=== PATIENT | male | born 1950 | race Caucasian/White ===

== ENCOUNTER 2025-05-29 20:35 | Emergency (ER) | payer BC, MEDICARE ==
[2025-05-29 20:44] VITALS: TEMP 97.8
[2025-05-29 20:57] LABS: MEAN PLATELET VOLUME 5.9 FL (7.4-10.4); RED CELL DISTRIBUTION WIDTH 20.0 % (11.5-14.5)
--- NOTE | 2025-05-29 21:06 | Physician Documentation ---
History of Present Illness General Chief Complaint: Palpitations Stated Complaint: HIGH BLOOD PRESSURE Time Seen by MD: 20:59 History of Present Illness Initial Comments The patient is a 74-year-old male with a history of CABG in the past who presents to the emergency room with a complaint of having a rapid heartbeat around 1500 today patient states for 3 hours he felt like he had a rapid heart rate of about 160 patient states that his symptoms started around 3:00 a.m. and lasted for about 3 hours during which time he was sweaty and felt like he was ill. Patient denies any fevers or significant shortness of breath. He denies any chest pain. The patient's symptoms have since improved he did notice an elevated blood pressure at home. She states he was out in the heat today for several hours. The patient does have history of hypothyroid knee also states that he has had atrial fibrillation in the past. Medication Reconciliation Allergies: Uncoded Allergies: UNKNOWN PAIN MED (Allergy, Unknown, 03/27/15) Past Medical History Past Medical History: Arrhythmia, Hypertension Past Surgical History: coronary bypass surgery Alcohol Use: Heavy Drug Use: none Lives In: Home Physical Exam Physical Exam Vital Signs: Temperature: 97.8, Heart Rate: 92, Respiratory Rate: 16, BP: 137/71, Pulse Oximetry: 98 Oxygen Flow Rate: 0 Progress Results/Orders Results/Orders Orders - JAZZ CHRISTIANSEN MD Chest,Single View (05/29/25 20:52) Monitor (05/29/25 20:43) Saline Lock (05/29/25 20:43) Oxygen (05/29/25 20:43) Electrocardiogram (05/29/25 20:43) Completed Orders - JAZZ CHRISTIANSEN MD Chest,Single View (05/29/25 20:52) Cbc/Diff (05/29/25 20:43) BMP (05/29/25 20:43) PBNP (05/29/25 20:43) Hs Troponin I W Calculations (05/29/25 20:43) Procalcitonin (05/29/25 21:24) Vital Signs 05/29/25 05/29/25 05/29/25 20:44 21:05 22:06 Temp 97.8 Pulse 92 80 Resp 16 18 16 B/P (MAP) 137/71 127/60 Pulse Ox 98 98 O2 Flow Rate 0 Laboratory Tests Test 05/29/25 20:45 White Blood Count 12.0 H Red Blood Count 4.16 L Hemoglobin 9.8 L Hematocrit 32.2 L Mean Corpuscular Volume 77.3 L Mean Corpuscular Hemoglobin 23.5 L Mean Corpuscular Hemoglobin Concent 30.5 L Red Cell Distribution Width 20.0 H Platelet Count 400 Mean Platelet Volume 5.9 L Neutrophils (%) (Auto) 72.3 Lymphocytes (%) (Auto) 17.9 L Monocytes (%) (Auto) 8.1 Eosinophils (%) (Auto) 0.8 Basophils (%) (Auto) 0.9 Neutrophils # (Auto) 8.6 H Lymphocytes # (Auto) 2.1 Monocytes # (Auto) 1.0 H Eosinophils # (Auto) 0.1 Basophils # (Auto) 0.1 CBC Comment Platelet Estimate Normal Red Blood Cell Morphology Perf Basophilic Stippling Anisocytosis 2+ Microcytosis 1+ Macrocytosis 1+ Sodium Level 140 Potassium Level 3.8 Chloride Level 107 Carbon Dioxide Level 25.4 Anion Gap 8 Blood Urea Nitrogen 26 H Creatinine 0.75 Estimated GFR/1.73 m2 > 90 BUN/Creatinine Ratio 34.7 H Glucose Level 106 H Calcium Level 8.9 Troponin I High Sensitivity 36 Pro-B-Type Natriuretic Peptide 233 Albumin 3.2 L Procalcitonin < 0.05 Chemistry Comments Medical Decision Making Findings The patient is a 12 lead EKG was interpreted as a sinus rhythm with a normal axis and diffuse nonspecific ST abnormalities the EKG was interpreted me as being borderline. The time of the EKG was 2037. Patient's chest x-ray was reviewed by me it demonstrated a normal mediastinum normal cardiac silhouette and normal-appearing lung davalos interpreted the x-ray as being normal and showing no acute disease process I have reviewed the radiologist's interpretation I agree with the interpretation as well. The patient presented with an episode of what appears to have been tachycardia most likely atrial fibrillation as he has had this in the past he is currently asymptomatic and not in atrial fibrillation his EKG was nonischemic appearing his labs were unremarkable his troponin was negative other etiologies that were considered were other abnormalities such shows other tachyarrhythmias, PVCs and cardiac ischemia none of which were supported by the clinical evidence the patient has been advised of the symptoms return that he should return to our emergency department the patient has been advised to follow up follow up with the Cardiology. The patient will be discharged the patient's pulse oximetry was interpreted as normal and adequate and his case monitor was interpreted as a sinus rhythm. Departure Time of Disposition: 21:57 Disposition: 01 HOME / SELF CARE / HOMELESS Impression: Primary Impression: Palpitations Discharge Instructions: Palpitations, [id number] Referrals: NO PRIMARY CARE PROVIDER (PCP) JAZZ CHRISTIANSEN MD May 29, 2025 21:06
--- NOTE | 2025-05-29 21:15 | RADIOLOGY REPORT ---
EXAM: DI CHEST,SINGLE VIEW TECHNIQUE: Single frontal chest radiograph CLINICAL HISTORY: CP COMPARISON: None Findings/Impression: The lungs are clear. The cardiomediastinal silhouette is unremarkable. Median sternotomy changes ar e noted. No pleural effusion or pneumothorax. No acute osseous abnormality.
[2025-05-29 21:16] LABS: PLATELET ESTIMATE NORMAL
[2025-05-29 21:17] LABS: CREATININE 0.75 MG/DL (0.60-1.10); PRO BRAIN NATRIURETIC PEPTIDE 233 PG/ML (0-450); TOTAL CARBON DIOXIDE 25.4 MMOL/L (24-32); eGFR > 90 ML/MIN
[2025-05-29 22:06] VITALS: BP 127/60; PULSE 80; RESP 16; O2SAT 98
--- NOTE | 2025-05-30 05:42 | ELECTROCARDIOGRAPH REPORT ---
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
== END 2025-05-29 22:09 | disposition home or self-care (01) ==
LOC: ER 20:36
DX: R00.2 Palpitations (principal); R00.0 Tachycardia, unspecified; R06.02 Shortness of breath; I10 Essential (primary) hypertension; E03.9 Hypothyroidism, unspecified; I48.91 Unspecified atrial fibrillation; F10.90 Alcohol use, unspecified, uncomplicated; Z95.1 Presence of aortocoronary bypass graft; Y90.9 Presence of alcohol in blood, level not specified
CPT/HCPCS: 36415; 71045; 80048; 83880; 84145; 84484; 85008; 85025; 93005; 99285